=== PATIENT | female | born 1995 | race Caucasian/White ===

== ENCOUNTER → 2017-01-01 | Outpatient (CLI) | payer OTHER ==
[2017-01-01 11:00] LABS: CHOLESTEROL/HDL RATIO 2.9
== END | disposition home or self-care (01) ==
LOC: C.LAB 09:16
PROVIDERS: ATTEND Family Medicine
DX: Z00.00 Encounter for general adult medical examination without abnormal findings (principal)

== ENCOUNTER → 2017-12-22 | Outpatient (CLI) | payer OTHER ==
[~2017-12-22] MED LIST: DOXY50CA PO; ETONMIS VAGRING
== END | disposition home or self-care (01) ==
LOC: C.RDSM 14:43
PROVIDERS: ATTEND Physical Medicine & Rehabilitation Sports Medicine
DX: S62.662A Nondisplaced fracture of distal phalanx of right middle finger, initial encounter for closed fracture (principal); X58.XXXA Exposure to other specified factors, initial encounter

== ENCOUNTER 2024-11-03 21:13 | Observation (INO) ==
[2024-11-03] MEDS: SODIUM CHLORIDE 0.9% 1,000 ML IV SCH (21:56)
[2024-11-03] MEDS: ONDANSETRON INJ 2 MG/ML 2 ML VIAL IV STA (22:01)
[2024-11-03] MEDS: ACETAMINOPHEN 500 MG TAB PO STA (22:01)
[2024-11-03] MEDS: KETOROLAC 30 MG/ML VIAL IV STA (22:01)
--- NOTE | 2024-11-03 22:07 | Emergency Department Note ---
Impression & Plan Pyelonephritis ED Provider Note CHIEF COMPLAINT: Fever, chills, headache and neck pain x 3 days HISTORY OF PRESENT ILLNESS: This 29-year-old female patient presents to the emergency department via private vehicle for evaluation of fever, chills, headache, neck pain. Symptoms been ongoing for 3 days. Patient states symptoms are worse today than they have been. She has a recent tick or insect bite. She denies any cough or URI symptoms. No chest pain or trouble breathing. No abdominal pain. No nausea or vomiting. She did have several loose stools earlier today. She denies neck stiffness, but really complains of pain. No weakness. No numbness or tingling. No dysuria, urinary frequency, urinary hesitancy, hematuria. No flank or back pain. No rash. Patient denies any recent travel. History provided by: Patient REVIEW OF SYSTEMS: A 10 system review of systems was performed with positives and pertinent negatives listed in the history of present illness. All other systems were reviewed and are negative. ALLERGIES: Sulfa PHYSICAL EXAM: VITALS: Vitals are noted on the nurse's note and reviewed by myself. Patient is febrile and tachycardic. GENERAL: This is a 29-year-old female, in no acute distress, nondiaphoretic, well-developed well-nourished. SKIN: The skin was without rashes, erythema, edema, or bruising. There is no tenting of the skin. Capillary refill less than 2 seconds. HEAD: Normocephalic atraumatic. EARS: External auditory canals clear, tympanic membranes pearly cornelius without erythema or effusion bilaterally. No hemotympanum. Negative huitron sign EYES: Pupils equal round and reactive to light and accommodation. Conjunctivae without injection, sclerae without icterus. Extraocular movements intact. NOSE: Patent, turbinates without inflammation or discharge. No sinus tenderness. MOUTH: Mucous membranes moist. Tonsils are not enlarged. Pharynx without erythema or exudate. Uvula midline. Airway patent. Tongue does not deviate. NECK: Supple without nuchal rigidity. No lymphadenopathy. Cervical spine is nontender. No JVD. HEART: Regular rate and rhythm without murmurs gallops or rubs. LUNGS: Clear to auscultation bilaterally without wheezes, rales or rhonchi. No retractions or accessory muscle use. ABDOMEN: Positive bowel sounds x 4. Soft, nontender, without masses or organomegaly. Lennon sign negative. No guarding or rebound tenderness. MUSCULOSKELETAL: No muscle atrophy, erythema, or edema noted. Full range of motion without joint tenderness in all extremities. No tenderness to palpation. Normal gait. Strength 5/5 throughout. NEURO: Patient was alert and oriented to person place and time. No focal neurological deficits. An order was placed for continuous cardiac surgeon. The monitor showed a sinus tachycardia at a ventricular rate of 119 bpm, per my interpretation. EKG was reviewed by myself and found to be sinus tachycardia at a rate of 117 beats per minute and per my interpretation reveals no ST elevation or depression. No T wave inversion. No prior EKG available for comparison. Imaging as interpreted by myself and the radiologist revealed findings consistent with bilateral pyelonephritis, right greater than left, with radiologist interpretation as above. I agree with the radiologist's findings as based upon my independent interpretation. EMERGENCY DEPARTMENT COURSE: The patient was evaluated as above. The patient presents to the emergency department for fever, chills, headache, and neck pain. Is been ongoing for 3 days. On arrival, the patient is tachycardic and febrile. Heart rate was 135. She is complaining only of a headache and chills at the time. IV access was obtained, labs are drawn. Patient immediately hydrated with 2 L of IV fluids. She was medicated with Toradol and acetaminophen. Labs reviewed. Per my interpretation, there is a leukocytosis of 21,000. No anemia or thrombocytopenia. Renal, hepatic function and electrolytes without significant abnormality. C-reactive protein elevated at 32.72. Procalcitonin 0.46. hCG negative. Urinalysis positive for nitrites, 4+ ketones, blood, leukocyte esterase, and bacteria. Respiratory bio fire testing negative. Lyme disease screen is negative. Anaplasma and Babesia smear are negative. Given the urinary tract infection without flank/back pain, dysuria, urinary frequency, urinary hesitancy, I did elect to perform CT imaging of the abdomen/pelvis to evaluate for pyelonephritis. CT imaging was completed and reviewed by myself radiologist as noted. This is consistent with bilateral pyelonephritis, right greater than left. Patient medicated with IV Rocephin. On reevaluation, she was feeling much better. Low suspicion for meningitis at this time. The patient does not have nuchal rigidity. Her neck pain has significantly improved. Her headache has largely resolved. Workup here in the emergency department is consistent with pyelonephritis. I do recommend inpatient care given her workup and symptoms. The patient was agreeable. I discussed the case with the [facility] hospitalist who agreed to accept the patient. Please see hospitalist dictation regarding ongoing management and care of this patient. Case was discussed with the attending physician. I attest that I have personally reviewed the patient medication list. I attest that I have reviewed the patient's blood pressure and it was found to be normal GCS: 15 In the evaluation and treatment of this patient the following differential diagnoses were entertained: Viral syndrome, otitis, pharyngitis, pneumonia, influenza, meningitis, urinary tract infection, sepsis, bacteremia, as well as other pathologies. The chart was completed utilizing DashThis Speech voice recognition software. Grammatical errors, random word insertions, pronoun errors, and incomplete sentences are an occasional consequence of this system due to software limitations, ambient noise, and hardware issues. Any formal questions or concerns about the content, text, or information contained within the body of this dictation should be directly addressed to the provider for clarification. Past Med/Surg History Problem List (Updated 11/04/24 @ 05:03 by Juana Rico PA-C) Pyelonephritis (Acute) Surgical History H/O shoulder surgery History of tonsillectomy and adenoidectomy Family History Other No pertinent past surgical history Social History Smoking Status: Never smoker Second Hand Exposure: No; Do You Dip or Chew Tobacco: No; Tobacco Cessation Education Requested by Patient: No Hx Alcohol Use: No Hx Substance Use: No Preferred Language: Georgian Communication Ability: Effective Horse Groomer Required: No Beliefs That Will Affect Care: None Current Living Situation: Parent Current Living Situation Comment: lives with her mom Other Information That Helps Us Care for You: No Feels Safe at Home: Yes Safety Concerns: Feels Safe At This Time Assistive Devices: None Allergies Allergies Allergy/AdvReac Type Severity Reaction Status Date / Time Sulfa (Sulfonamide Allergy Mild Hives Verified 12/06/17 16:40 Antibiotics) Home Meds Home Medications Medication Instructions Recorded Confirmed DOXYCYCLINE HYCLATE (VIBRAMYCIN) 50 mg PO DAILY #0 caps 12/06/17 04/03/20 Etonogestrel/Ethinyl Estradiol 1 dose VAGRING MONTHLY #0 doses 12/06/17 04/03/20 (Nuvaring) methylphenidate HCl 18 mg 18 mg PO DAILY 07/13/19 04/03/20 tablet,extended release 24 hr (Concerta) spironolactone 25 mg/5 mL oral 25 mg PO DAILY 07/13/19 04/03/20 suspension Results & Data (ED) Vital Signs Vital Signs - 24 hr 11/03/24 21:17 11/03/24 21:48 11/03/24 22:03 Temperature 38.1 C H Temperature Source Oral Pulse Rate 137 H 119 H 116 H Pulse Rate [Apical] Pulse Rate from SpO2 Sensor Respiratory Rate 18 21 Respiratory Effort / Characteristics Non-Labored Spontaneous Respiratory Depth Normal Respiratory Pattern Regular Blood Pressure 127/75 Blood Pressure [Right Arm] Blood Pressure Mean 92 Blood Pressure Mean [Right Arm] Blood Pressure Position Sitting Pulse Oximetry 98 98 Oxygen Delivery Method Room Air Sepsis Recent Fever Within 48 Hours Yes Sepsis New/Unexplained Change in Mental Status No Sepsis Action Taken by Nursing No Action Required 11/03/24 22:27 11/03/24 22:56 11/03/24 22:56 Temperature Temperature Source Pulse Rate 102 H Pulse Rate [Apical] 107 H Pulse Rate from SpO2 Sensor Respiratory Rate 19 18 Respiratory Effort / Characteristics Respiratory Depth Respiratory Pattern Blood Pressure 110/65 Blood Pressure [Right Arm] 110/65 Blood Pressure Mean 73 Blood Pressure Mean [Right Arm] 80 Blood Pressure Position Pulse Oximetry 99 Oxygen Delivery Method Sepsis Recent Fever Within 48 Hours Sepsis New/Unexplained Change in Mental Status Sepsis Action Taken by Nursing 11/03/24 23:00 11/03/24 23:54 11/04/24 01:42 Temperature Temperature Source Pulse Rate 105 H 99 H 79 Pulse Rate [Apical] Pulse Rate from SpO2 Sensor 104 H 99 H Respiratory Rate 22 21 18 Respiratory Effort / Characteristics Respiratory Depth Respiratory Pattern Blood Pressure 97/62 L Blood Pressure [Right Arm] Blood Pressure Mean 69 Blood Pressure Mean [Right Arm] Blood Pressure Position Pulse Oximetry 98 99 98 Oxygen Delivery Method Sepsis Recent Fever Within 48 Hours Sepsis New/Unexplained Change in Mental Status Sepsis Action Taken by Nursing 11/04/24 01:43 11/04/24 01:57 11/04/24 02:06 Temperature 36.7 C Temperature Source Oral Pulse Rate 93 H 79 Pulse Rate [Apical] Pulse Rate from SpO2 Sensor 78 Respiratory Rate 15 Respiratory Effort / Characteristics Respiratory Depth Respiratory Pattern Blood Pressure Blood Pressure [Right Arm] Blood Pressure Mean Blood Pressure Mean [Right Arm] Blood Pressure Position Pulse Oximetry 99 Oxygen Delivery Method Sepsis Recent Fever Within 48 Hours Sepsis New/Unexplained Change in Mental Status Sepsis Action Taken by Nursing Laboratory Data 11/03/24 21:52 11/03/24 21:52 Lab Results 11/03/24 11/03/24 Range/Units 21:52 22:55 WBC 21.15 H (4.8-10.8) K/ul RBC 4.59 (4.20-5.40) M/uL Hgb 12.0 (12.0-16.0) g/dl Hct 36.7 L (37.0-47.0) % MCV 80.0 (80.0-100.0) fL MCH 26.1 (25.0-34.0) pg MCHC 32.7 (32.0-36.0) g/dL RDW Std Deviation 44.5 (36.4-46.3) fL RDW Coeff of William 15.5 H (11.5-14.5) % Plt Count 245 (130-400) K/uL MPV 10.5 (9.4-12.4) fL Immature Gran % (Auto) 0.7 % Neut % (Auto) 81.9 % Lymph % (Auto) 5.3 % Taney % (Auto) 11.7 % Eos % (Auto) 0.2 % Baso % (Auto) 0.2 % Neut # (Auto) 17.32 H (1.40-6.50) K/uL Lymph # (Auto) 1.13 L (1.20-3.40) K/uL Taney # (Auto) 2.47 H (0.11-0.59) K/uL Eos # (Auto) 0.04 (0.00-0.50) K/uL Baso # (Auto) 0.05 (0.00-0.20) K/uL Immature Gran # (Auto) 0.14 (0.01-0.20) K/uL Sodium 131 L (136-145) mmol/L Potassium 3.4 L (3.5-5.1) mmol/L Chloride 98 (98-107) mmol/L Carbon Dioxide 22 (21-32) mmol/L Anion Gap 11 (3-11) BUN 6 (6-23) mg/dl Creatinine 0.84 (0.6-1.2) mg/dl Est Cr Clr Drug Dosing 144.8 ml/min eGFR 95.22 BUN/Creatinine Ratio 7.1 L (10-20) Glucose 125 H (70-99(Fasting)) mg/dl Lactate 1.0 (0.4-2.0) mmol/L Calcium 9.0 (8.6-10.3) mg/dl Magnesium 1.7 (1.7-2.4) mg/dl Total Bilirubin 0.6 (0.2-1.0) mg/dl Direct Bilirubin 0.1 (0-0.2) mg/dl AST 10 L (13-39) U/L ALT 12 (7-52) U/L Alkaline Phosphatase 85 (34-104) U/L Troponin I High Sens 11.5 (0-14) pg/ml C-Reactive Protein 32.72 H (0-0.5) mg/dl Total Protein 7.0 (6.0-8.3) gm/dl Albumin 3.6 (3.4-5.0) gm/dl Procalcitonin 0.46 (0-0.5) ng/ml HCG, Qual Negative (Negative) Urine Color Yellow Urine Appearance Clear (Clear) Urine pH 6.0 (4.5-7.5) Ur Specific [place] 1.016 (1.000-1.030) Urine Protein 2+ H (Negative) Urine Glucose (UA) Negative (Negative) Urine Ketones 4+ H (Negative) Urine Blood 1+ H (Negative) Urine Nitrite Positive A (Negative) Urine Bilirubin Negative (Negative) Urine Urobilinogen Negative (Negative) Ur Leukocyte Esterase 2+ H (Negative) Urine WBC (Auto) >50 H (0-5) /hpf Urine RBC (Auto) 11-20 H (0-2) /hpf U Hyaline Cast (Auto) 3-5 H (0-2) /lpf U Epithel Cells (Auto) 3-5 H (0-2) /hpf Urine Bacteria (Auto) 2+ H (None Seen) Urine Comment Adenovirus (PCR) Not Detected (NotDetected) Anaplasma Smear See Comment Babesia Smear See Comment B. pertussis DNA (PCR) Not Detected (NotDetected) B.parapertussis DNA PCR Not Detected (NotDetected) Lyme Disease Screen Negative (Negative) C. pneumoniae DNA (PCR) Not Detected (NotDetected) Coronavirus OC43 (PCR) Not Detected (NotDetected) Coronavirus HKU1 (PCR) Not Detected (NotDetected) Coronavirus 229E (PCR) Not Detected (NotDetected) SARS-CoV-2 (PCR) Not Detected (NotDetected) Coronavirus NL63 (PCR) Not Detected (NotDetected) Monoscreen Negative (Negative) Human Metapneumovir PCR Not Detected (NotDetected) Influenza Type A (PCR) Not Detected (NotDetected) Influenza Type B (PCR) Not Detected (NotDetected) M. pneumoniae (PCR) Not Detected (NotDetected) Parainfluenza 1 (PCR) Not Detected (NotDetected) Parainfluenza 2 (PCR) Not Detected (NotDetected) Parainfluenza 3 (PCR) Not Detected (NotDetected) Parainfluenza 4 (PCR) Not Detected (NotDetected) RSV (PCR) Not Detected (NotDetected) Entero/Rhino (PCR) Not Detected (NotDetected) Administered Medications Lactated Ringer's (Lr) 1,000 mls @ 125 mls/hr IV .Q8H ROMULO Stop: 11/04/24 19:48 Last Admin: 11/04/24 04:47 Dose: 125 mls/hr Documented By: BROOKE Discontinued Medications Acetaminophen (Acetaminophen 500 Mg Tab) 1,000 mg PO NOW STA Stop: 11/03/24 21:36 Last Admin: 11/03/24 22:01 Dose: 1,000 mg Documented By: SRUTHI Sodium Chloride (Nss) 1,000 mls @ 999 mls/hr IV .Q1H1M ROMULO Stop: 11/03/24 23:45 Last Infusion: 11/03/24 23:46 Dose: Infused Documented By: Admin: 11/03/24 22:56 Dose: 999 mls/hr Documented By: Infusion: 11/03/24 22:54 Dose: Infused Documented By: Admin: 11/03/24 21:56 Dose: 999 mls/hr Documented By: SRUTHI Ceftriaxone Sodium (Rocephin) 2,000 mg in 50 mls @ 100 mls/hr IV NOW STA Stop: 11/04/24 00:14 Last Infusion: 11/04/24 00:35 Dose: Infused Documented By: Admin: 11/04/24 00:05 Dose: 100 mls/hr Documented By: JONNA Ioversol (Optiray 320 100ml) 93 ml IV ONCE ONE Stop: 11/04/24 00:30 Last Admin: 11/04/24 00:29 Dose: 93 ml Documented By: MINNIE Ketorolac Tromethamine (Ketorolac 30 Mg/Ml Vial) 30 mg IV NOW STA Stop: 11/03/24 21:53 Last Admin: 11/03/24 22:01 Dose: 30 mg Documented By: SRUTHI Ondansetron HCl (Ondansetron Inj 2 Mg/Ml 2 Ml Vial) 4 mg IV NOW STA Stop: 11/03/24 21:53 Last Admin: 11/03/24 22:01 Dose: 4 mg Documented By: SRUTHI Imaging Data Radiologist's Impression: Chest X-Ray 11/03/24 21:35 Exam(s): XR CXR 1 VIEW EXAM: XR Chest, 1 View CLINICAL HISTORY: Reason for exam: Sepsis. TECHNIQUE: Frontal view of the chest. COMPARISON: None FINDINGS: Hardware: None. Lungs/pleura: Normal. No focal consolidation. No pleural effusion or pneumothorax. Heart/mediastinum: Normal. No cardiomegaly. Soft tissues: Unremarkable. Bones: No acute fracture. Upper abdomen: Normal. IMPRESSION: No acute disease identified. Electronically signed by: Ashok Nunez M.D. 11/04/24 00:27 AM Abdomen/Pelvis CT 11/03/24 23:45 EXAM: CT abd pelvis IV con only CLINICAL HISTORY: fever, UTI TECHNIQUE: Contiguous axial images were obtained from the level of the diaphragm to the pubic symphysis with intravenous contrast. Coronal and sagittal reconstructions were likewise performed and indicated to increase the sensitivity for detecting clinically relevant pathology. If IV contrast material had not been administered, the likelihood of detecting abnormalities relevant to the patient's condition would have been substantially decreased. CT scan was performed according to ALARA (as low as reasonable achievable). COMPARISON: None FINDINGS: The visualized lung bases are clear. The liver is normal in size and attenuation. No focal liver lesions are seen. There is no intra or extrahepatic biliary ductal dilatation. Hepatic vasculature is patent. The gallbladder is present. The spleen, pancreas, and adrenal glands are unremarkable. Both kidney appears bulky in size and shows multiple patchy started hypodense area involving renal cortex with bilateral perinephric fat stranding ; more on right side.- suggestive of pyelonephritis. Mild fullness noted involving bilateral ureter and shows diffuse mucosal edema - suggestive of ureteritis- predominantly on the right side. The bladder is normal in contour. Pelvic viscera are unremarkable. No focal or diffuse bowel wall thickening or evidence of bowel obstruction is identified. Abdominal and pelvic vasculature is patent. Minimal free fluid noted in pelvis. 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 No aggressive appearing osseous lesions are identified. IMPRESSION: Bilateral pyelonephritis with ureteritis - more on right side. Minimal free fluid noted in pelvis. 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 Electronically signed by Alvaro Elder 11-04-2024 02:18 AM Discharge Plan Visit Data Chief Complaint: Flu Like Symptoms Stated Complaint: FLU ED Provider: Umesh Torres ED Midlevel Provider: Juana Rico Discharge Problem: Pyelonephritis Patient Disposition: Admitted As Inpatient Condition: Good
[2024-11-03 22:35] LABS: BUN Creatinine Ratio 7.1 (10-20); Bilirubin Direct 0.1 mg/dl (0-0.2); Bilirubin,Total 0.6 mg/dl (0.2-1.0); Creatinine Clr Calc Pharmacy 144.8 ml/min; Magnesium 1.7 mg/dl (1.7-2.4); Potassium 3.4 mmol/L (3.5-5.1)
[2024-11-03 22:42] LABS: Troponin I High Sensitivity 11.5 pg/ml (0-14)
[2024-11-03 22:46] LABS: Basophils # (auto) 0.05 K/uL (0.00-0.20); Basophils % (auto) 0.2 %; Eosinophils # (auto) 0.04 K/uL (0.00-0.50); Eosinophils % (auto) 0.2 %; Hematocrit (blood only) 36.7 % (37.0-47.0); Immature Granulocytes # (auto) 0.14 K/uL (0.01-0.20); Immature Granulocytes % (auto) 0.7 %; Lymphocytes # (auto) 1.13 K/uL (1.20-3.40); Lymphocytes % (auto) 5.3 %; Mean Corpuscular Hemoglobin 26.1 pg (25.0-34.0); Mean Corpuscular Hgb Conc 32.7 g/dL (32.0-36.0); Mean Platelet Volume 10.5 fL (9.4-12.4); Monocytes # (auto) 2.47 K/uL (0.11-0.59); Monocytes % (auto) 11.7 %; Neutrophils # (auto) 17.32 K/uL (1.40-6.50); Neutrophils % (auto) 81.9 %; Platelet Count 245 K/uL (130-400); RDW Coefficient of Variation 15.5 % (11.5-14.5); RDW Standard Deviation 44.5 fL (36.4-46.3); Red Blood Count 4.59 M/uL (4.20-5.40); White Blood Count 21.15 K/ul (4.8-10.8)
[2024-11-03 22:49] LABS: Pregnancy Test, Serum Negative (Negative)
[2024-11-03 22:58] LABS: C Reactive Protein 32.72 mg/dl (0-0.5)
[2024-11-03 23:14] LABS: Adenovirus PCR Not Detected (NotDetected); Bordetella parapertussis PCR Not Detected (NotDetected); Bordetella pertussis PCR Not Detected (NotDetected); Chlamydia pneumoniae PCR Not Detected (NotDetected); Coronavirus 229E PCR Not Detected (NotDetected); Coronavirus CoV-2 (COVID19)PCR Not Detected (NotDetected); Coronavirus HKU1 PCR Not Detected (NotDetected); Coronavirus NL63 PCR Not Detected (NotDetected); Coronavirus OC43PCR Not Detected (NotDetected); Human Metapneumovirus PCR Not Detected (NotDetected); Influenza A PCR Not Detected (NotDetected); Influenza B PCR Not Detected (NotDetected); Mycoplasma pneumoniae PCR Not Detected (NotDetected); Parainfluenza Virus 1 PCR Not Detected (NotDetected); Parainfluenza Virus 2 PCR Not Detected (NotDetected); Parainfluenza Virus 3 PCR Not Detected (NotDetected); Parainfluenza Virus 4 PCR Not Detected (NotDetected); Respiratory Syncytial VirusPCR Not Detected (NotDetected); Rhinovirus/Enterovirus PCR Not Detected (NotDetected)
[2024-11-03 23:32] LABS: Appearance Urine Clear (Clear); Bacteria Urine Automated 2+ (None Seen); Bilirubin Urine Negative (Negative); Blood Urine 1+ (Negative); Color Urine Yellow; Glucose Urine UA Negative (Negative); Ketones Urine 4+ (Negative); Leukocyte Esterase Urine 2+ (Negative); Nitrite Urine Positive (Negative); Protein Urine 2+ (Negative); Specific Gravity Urine 1.016 (1.000-1.030); Urobilinogen Urine Negative (Negative); WBC Urine Automated >50 /hpf (0-5)
[2024-11-04] MEDS: cefTRIAXone SODIUM 2,000 MG/50 ML BAG IV STA (00:05)
--- NOTE | 2024-11-04 00:28 | XRay Report ---
Exam(s): XR CXR 1 VIEW EXAM: XR Chest, 1 View CLINICAL HISTORY: Reason for exam: Sepsis. TECHNIQUE: Frontal view of the chest. COMPARISON: None FINDINGS: Hardware: None. Lungs/pleura: Normal. No focal consolidation. No pleural effusion or pneumothorax. Heart/mediastinum: Normal. No cardiomegaly. Soft tissues: Unremarkable. Bones: No acute fracture. Upper abdomen: Normal. IMPRESSION: No acute disease identified. Electronically signed by: Ashok Nunez M.D. 11/04/24 00:27 AM
[2024-11-04] MEDS: OPTIRAY 320 100ml IV ONE (00:29)
--- NOTE | 2024-11-04 02:11 | History & Physical Report ---
Date of Service November 04, 2024 Assessment & Plan (1) Pyelonephritis: (2) Sepsis: (3) Hyponatremia: Plan Pt is a pleasant 29 yo female with past medical hx of previous UTIs who presents to the hospital on 11/04 for fevers, admitted for pyelonephritis. #Pyelonephritis - CT abd/pelvis; bilateral pyelonephritis with ureteritis R>L, well defined fat/calcified focus in R ovary "likely mature dermoid" - WBC count on admission , CRP 32.7, febrile - urine cx; pending - blood cx; pending - IVR LR 125/hr x2 bags - IV antibiotics; rocephin DVT ppx: low risk, ambulate as tolerated History of Present Illness Chief Complaint: Pyelonephritis Primary Care Provider: Rosalina Lucas DO Pt is a pleasant 29 yo female with past medical hx of previous UTIs who presents to the hospital on 11/04 for fevers, admitted for pyelonephritis. Pt states that on Wednesday morning she woke up with fevers and body aches. She no sergoi some nausea/decreased appetite the last few days but no vomiting. She states she did have some diarrhea episodes today, very loose, no blood, 3 times today only. She states that she has had UTIs in the past, last one being a few years ago. She states she just returned from [place] where she attended training for [employer]. No URI symptoms noted. She does note some back soreness. No further concerns noted at this time. Allergies Allergy/AdvReac Type Severity Reaction Status Date / Time Sulfa (Sulfonamide Allergy Mild Hives Verified 12/06/17 16:40 Antibiotics) Home Medications Medication Instructions Recorded Confirmed Type DOXYCYCLINE HYCLATE (VIBRAMYCIN) 50 mg PO DAILY #0 caps 12/06/17 04/03/20 History Etonogestrel/Ethinyl Estradiol 1 dose VAGRING MONTHLY #0 doses 12/06/17 04/03/20 History (Nuvaring) methylphenidate HCl 18 mg 18 mg PO DAILY 07/13/19 04/03/20 History tablet,extended release 24 hr (Concerta) spironolactone 25 mg/5 mL oral 25 mg PO DAILY 07/13/19 04/03/20 History suspension Past Med/Surg History Problem List (Updated 11/04/24 @ 10:00 by Moisés Goldsmith MD) Hyponatremia Sepsis Pyelonephritis (Acute) Surgical History H/O shoulder surgery History of tonsillectomy and adenoidectomy Family History Other No pertinent past surgical history Social History Smoking Status: Never smoker Second Hand Exposure: No; Do You Dip or Chew Tobacco: No; Tobacco Cessation Education Requested by Patient: No Hx Alcohol Use: No Hx Substance Use: No Preferred Language: Amharic Communication Ability: Effective Local Tanker Truck Driver Required: No Beliefs That Will Affect Care: None Current Living Situation: Parent Current Living Situation Comment: lives with her mom Other Information That Helps Us Care for You: No Feels Safe at Home: Yes Safety Concerns: Feels Safe At This Time Assistive Devices: None Review of Systems Review of Systems: Per HPI. Physical Exam Physical Exam: General: Alert and oriented, no acute distress, comfortable appearing HEENT: Normocephalic, moist oral mucosa, Cardio: Regular rate and rhythm, no murmur, Resp: Lungs clear to auscultation without wheezing, no increased resp effort, GI: Soft and nontender, nondistended, bowel sounds active Skin: Warm, pink, dry, Results & Data Results & Data Vital Signs (Past 12 Hours) Vital Signs Temp Pulse Pulse Resp BP BP Pulse Ox 11/04/24 01:57 93 H 11/04/24 01:43 36.7 C 11/04/24 01:42 79 18 97/62 L 98 11/03/24 23:54 99 H 21 99 11/03/24 23:00 105 H 22 98 11/03/24 22:56 110/65 11/03/24 22:56 107 H 18 110/65 99 11/03/24 22:27 102 H 19 11/03/24 22:03 116 H 21 98 11/03/24 21:48 119 H 11/03/24 21:17 38.1 C H 137 H 18 127/75 98 O2 Del Method 11/04/24 01:57 11/04/24 01:43 11/04/24 01:42 11/03/24 23:54 11/03/24 23:00 11/03/24 22:56 11/03/24 22:56 11/03/24 22:27 11/03/24 22:03 11/03/24 21:48 11/03/24 21:17 Room Air Supervising Physician Co-Signing Physician Notes Attending Attestation & Admit Note: Pt seen/examined, chart reviewed, admit care plan d/w resident physician Dr Juana Dimas. I agree with the hodges components of her documentation with the following additions - ##sepsis ##hyponatremia ##hypokalemia 29yo female - no significant PMH - presenting with several days of fevers/chills & flu-like symptoms. Minimal right-sided abdominal discomfort. Extensive w/u in the ER revealed u/a highly suspicious for UTI. CT a/p with findings c/w b/l pyelonephritis, worse on right. Lyme, anaplasmosis, babesia screens negative. Resp BioFire negative. Toombs testing negative. Blood cx's dispatched. CT with incidental finding of right-sided ovarian dermoid cyst. exam: gen - looks ill but nontoxic, awake/alert neck - no meningismus mouth - MM dry heart - RRR, s1 s2, no murmur lungs - CTA b/l abd - soft, mild tenderness R flank, no HSM, BS+ ext - warm, pulses 2+ b/l A/P: 1. sepsis 2nd to UTI/pyelonephritis 2. UTI/pyelonephritis; no risk factors for resistant pathogens 3. hyponatremia 2nd volume contraction 4. incidental finding of right-sided ovarian dermoid cyst 5. minimal hypokalemia 2nd to diarrhea and poor nutritional intake -rocephin IV -IV fluids -follow blood/urine cx's -repeat labs am tomorrow #4 - f/u with sweatband cutting machine operator as outpatient Moisés Goldsmith MD Resident Activity Tracking Resident Involvement: Resident Care Provided Care Provided: Adult Hospital Medicine
--- NOTE | 2024-11-04 02:23 | CT Scan Report ---
EXAM: CT abd pelvis IV con only CLINICAL HISTORY: fever, UTI TECHNIQUE: Contiguous axial images were obtained from the level of the diaphragm to the pubic symphysis with intravenous contrast. Coronal and sagittal reconstructions were likewise performed and indicated to increase the sensitivity for detecting clinically relevant pathology. If IV contrast material had not been administered, the likelihood of detecting abnormalities relevant to the patient's condition would have been substantially decreased. CT scan was performed according to ALARA (as low as reasonable achievable). COMPARISON: None FINDINGS: The visualized lung bases are clear. The liver is normal in size and attenuation. No focal liver lesions are seen. There is no intra or extrahepatic biliary ductal dilatation. Hepatic vasculature is patent. The gallbladder is present. The spleen, pancreas, and adrenal glands are unremarkable. Both kidney appears bulky in size and shows multiple patchy started hypodense area involving renal cortex with bilateral perinephric fat stranding ; more on right side.- suggestive of pyelonephritis. Mild fullness noted involving bilateral ureter and shows diffuse mucosal edema - suggestive of ureteritis- predominantly on the right side. The bladder is normal in contour. Pelvic viscera are unremarkable. No focal or diffuse bowel wall thickening or evidence of bowel obstruction is identified. Abdominal and pelvic vasculature is patent. Minimal free fluid noted in pelvis. 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 No aggressive appearing osseous lesions are identified. IMPRESSION: Bilateral pyelonephritis with ureteritis - more on right side. Minimal free fluid noted in pelvis. 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 Electronically signed by Alvaro Elder 11-04-2024 02:18 AM
[2024-11-04] MEDS ORDERED: ONDANSETRON INJ 2 MG/ML 2 ML VIAL IV PRN (03:49)
[2024-11-04] MEDS ORDERED: MELATONIN 3 MG TAB PO PRN (03:49)
[2024-11-04] MEDS ORDERED: POLYETHYLENE (MIRALAX) 17 GM PACK PO PRN (03:49)
[2024-11-04] MEDS: LACTATED RINGER'S 1,000 ML IV SCH (04:47)
[2024-11-04] MEDS: ACETAMINOPHEN 325 MG TAB PO PRN (05:31)
[2024-11-04] MEDS: POTASSIUM CHLORIDE CRTAB 20 MEQ TABCR PO STA ×2 (05:37→09:08)
[2024-11-04 07:13] VITALS: RESP 16
[2024-11-04 07:24] LABS: Basophils # (auto) 0.03 K/uL (0.00-0.20); Basophils % (auto) 0.2 %; Eosinophils # (auto) 0.02 K/uL (0.00-0.50); Eosinophils % (auto) 0.1 %; Hematocrit (blood only) 28.7 % (37.0-47.0); Hemoglobin 9.8 g/dl (12.0-16.0); Immature Granulocytes # (auto) 0.12 K/uL (0.01-0.20); Immature Granulocytes % (auto) 0.6 %; Lymphocytes # (auto) 0.78 K/uL (1.20-3.40); Lymphocytes % (auto) 4.2 %; Mean Corpuscular Hemoglobin 27.1 pg (25.0-34.0); Mean Corpuscular Hgb Conc 34.1 g/dL (32.0-36.0); Mean Corpuscular Volume 79.3 fL (80.0-100.0); Mean Platelet Volume 10.6 fL (9.4-12.4); Monocytes # (auto) 2.08 K/uL (0.11-0.59); Monocytes % (auto) 11.2 %; Neutrophils # (auto) 15.48 K/uL (1.40-6.50); Neutrophils % (auto) 83.7 %; Platelet Count 196 K/uL (130-400); RDW Coefficient of Variation 15.4 % (11.5-14.5); RDW Standard Deviation 44.4 fL (36.4-46.3); Red Blood Count 3.62 M/uL (4.20-5.40); White Blood Count 18.51 K/ul (4.8-10.8)
[2024-11-04 07:43] LABS: BUN Creatinine Ratio 10.8 (10-20); Calcium 7.6 mg/dl (8.6-10.3); Creatinine Clr Calc Pharmacy 131.1 ml/min; Potassium 3.3 mmol/L (3.5-5.1)
--- NOTE | 2024-11-04 10:07 | Billing Data ---
Date of Service November 04, 2024 Coding Level of Care Code 79228 INT INP/OBS CARE
--- NOTE | 2024-11-04 10:33 | Hospitalist Progress Note ---
Date of Service November 04, 2024 Assessment & Plan (1) Pyelonephritis: (2) Sepsis: (3) Hyponatremia: Plan Pt is a pleasant 29 yo female with past medical hx of previous UTIs who presents to the hospital on 11/04 for fevers, admitted for pyelonephritis. 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 Last documented fever 11/03 night - Continue IV Ceftriaxone for now, downgrade antibiotic when culture sensitivities result - Urine culture prelim E. coli, sensitivities pending. Blood cultures pending - S/p 2 L IV fluids - Tylenol as needed for fever/pain - Trend CBC and CRP with AM labs #Hypokalemia - Mild, K 3.3 - Repleted with 20 mEq p.o. x 1 - Trend BMP with AM labs DVT ppx: low risk, ambulate as tolerated Dispo: Awaiting culture sensitivities. Anticipate discharge home in next 24-48 hours Repleted potassium Admission and Anticipated Discharge Date Admission Date: November 04, 2024 Supervising Physician Co-Signing Physician Notes The patient was not seen by me. The chart was reviewed. Case discussed with LETTY Coates. Agree with assessment and plan Subjective Patient seen and evaluated at bedside. She reports feeling a bit better overall. She notes still having intermittent chills, though she has not had a documented fever since her arrival in the ED. She denies any significant pain. She denies any urinary symptoms including dysuria, increased frequency or urgency, or CVA tenderness. She reports a reduced appetite compared to her baseline, but denies nausea, vomiting, or abdominal discomfort. We discussed her pending urine and blood cultures, her lab results, and her antibiotic regimen. All questions answered. No additional complaints or concerns at this time. Physical Exam Physical Exam: General: No acute distress, nondiaphoretic, well-developed, well-nourished. Cardiac: Regular rate and rhythm without murmurs gallops or rubs. Pulm: Clear to auscultation bilaterally without wheezes, rales or rhonchi. Normal respiratory effort. 99% on room air. Abdominal: Soft, nontender, nondistended. Bowel sounds present. No CVA tenderness bilaterally. No suprapubic tenderness. Neuro: A&O x3. No focal neurological deficits. Results & Data Results & Data Vital Signs (Past 12 Hours) Vital Signs Temp Pulse Pulse Pulse Resp BP BP 11/04/24 07:12 99.5 F 102 H 16 96/57 L 11/04/24 03:45 98.1 F 81 18 11/04/24 03:40 98.1 F 81 16 11/04/24 03:00 81 22 11/04/24 02:36 82 19 11/04/24 02:06 79 15 11/04/24 01:57 93 H 11/04/24 01:43 98.1 F 11/04/24 01:42 79 18 97/62 L 11/03/24 23:54 99 H 21 11/03/24 23:00 105 H 22 11/03/24 22:56 110/65 11/03/24 22:56 107 H 18 BP Pulse Ox O2 Del Method 11/04/24 07:12 99 Room Air 11/04/24 03:45 97/65 L 100 Room Air 11/04/24 03:40 97/65 L 100 Room Air 11/04/24 03:00 99 11/04/24 02:36 100 11/04/24 02:06 99 11/04/24 01:57 11/04/24 01:43 11/04/24 01:42 98 11/03/24 23:54 99 11/03/24 23:00 98 11/03/24 22:56 11/03/24 22:56 110/65 99 Laboratory Results Reviewed CBC Reviewed BMP, chemistries Reviewed UA Reviewed cultures Diagnostic Findings Reviewed CXR, CT A/P PG Care Time/CCT Total # of Minutes Spent Total Time Spent with Patient: Total time spent is greater than 50% in coordination of care (as documented) at patient's floor/unit and/or counseling patient: Coding Level of Care Code 99513 SUB INP/OBS CARE 3/50MIN Diagnoses Pyelonephritis N12 Sepsis A41.9 Hyponatremia E87.1
[2024-11-04] MEDS: cefTRIAXone SODIUM 2,000 MG/50 ML BAG IV SCH (23:10)
[2024-11-05 07:06] VITALS: TEMP 100; O2SAT 97
[2024-11-05 07:27] LABS: Basophils # (auto) 0.03 K/uL (0.00-0.20); Basophils % (auto) 0.2 %; Eosinophils # (auto) 0.02 K/uL (0.00-0.50); Eosinophils % (auto) 0.1 %; Hematocrit (blood only) 28.9 % (37.0-47.0); Hemoglobin 9.8 g/dl (12.0-16.0); Immature Granulocytes # (auto) 0.15 K/uL (0.01-0.20); Immature Granulocytes % (auto) 0.9 %; Lymphocytes # (auto) 1.27 K/uL (1.20-3.40); Lymphocytes % (auto) 7.7 %; Mean Corpuscular Hemoglobin 26.8 pg (25.0-34.0); Mean Corpuscular Hgb Conc 33.9 g/dL (32.0-36.0); Mean Corpuscular Volume 79.2 fL (80.0-100.0); Mean Platelet Volume 10.5 fL (9.4-12.4); Monocytes % (auto) 13.9 %; Neutrophils # (auto) 12.81 K/uL (1.40-6.50); Neutrophils % (auto) 77.2 %; Platelet Count 201 K/uL (130-400); RDW Coefficient of Variation 15.6 % (11.5-14.5); RDW Standard Deviation 45.1 fL (36.4-46.3); Red Blood Count 3.65 M/uL (4.20-5.40); White Blood Count 16.58 K/ul (4.8-10.8)
[2024-11-05 08:01] LABS: BUN Creatinine Ratio 6.3 (10-20); Creatinine Clr Calc Pharmacy 135.2 ml/min; Potassium 3.3 mmol/L (3.5-5.1)
[2024-11-05 08:24] LABS: C Reactive Protein 31.64 mg/dl (0-0.5)
[2024-11-05] MEDS: POTASSIUM CHLORIDE CRTAB 20 MEQ TABCR PO STA (09:22)
--- NOTE | 2024-11-05 10:31 | Discharge Summary ---
Discharge Summary Date of Service November 05, 2024 Principal Dx & Hospital Course #1 = Principal Diagnosis (1) Pyelonephritis: (2) UTI (urinary tract infection): (3) Hyponatremia: Plan Pt is a pleasant 29 yo female with past medical hx of previous UTIs who presents to the hospital on 11/04 for fevers, admitted for pyelonephritis. 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 While she developed a fever last night, she reports that she took Tylenol, felt better, and slept well. She has some mild neck stiffness this morning, which she attributes to sleeping in the hospital bed. Patient reports she has been eating and drinking well, and getting up to use the restroom without any difficulty. She did have an episode of diarrhea yesterday and this morning, as well as some mild abdominal cramping. Other than this, she reports no urinary symptoms. No burning with urination, dysuria, blood in the urine, body aches, or right lower back pain. Overall, she is eager to return home at this time. She is amenable to taking oral antibiotics upon discharge. She does report that, in the past, taking antibiotics such as Keflex have led to yeast infections. She has taken ciprofloxacin in the past, and reports she does all right when she takes it. ROS: Patient endorses fever last night (resolved), mild abdominal cramping, and diarrhea. Patient denies chills, night sweats, body aches, headache, dizziness/lightheadedness with standing, chest pain, chest palpitations, SOB, cough, abdominal pain, nausea, vomiting, burning with urination, lower back pain, blood in the urine or stool, or melena. #Pyelonephritis | UTI Leukocytosis downtrending 21 --> 18.5 -> 16.58 CRP downtrending 32.7 -> 31.6 S/p 2 L IV fluids Tylenol as needed for fever/pain Ceftriaxone 2000 mg IV q24h while in the hospital UCx resulted on 11.05 growing pansensitive E. coli Sensitive to both cephalosporins and fluoroquinolones Clinically, patient reports she feels much better on 11/05; no urinary symptoms Discharged on ciprofloxacin 500 mg p.o. BID; QTc okay at 415 #Hypokalemia Mild, K 3.3 Repleted with 20 mEq p.o. x 2 Dispo: Safe for return home on oral antibiotics; will discharge on ciprofloxacin 500 mg p.o. BID x 5 days to complete 7-day course Admission HPI Per Admitting Provider Pt is a pleasant 29 yo female with past medical hx of previous UTIs who presents to the hospital on 11/04 for fevers, admitted for pyelonephritis. Pt states that on Wednesday morning she woke up with fevers and body aches. She notes some nausea/decreased appetite the last few days but no vomiting. She states she did have some diarrhea episodes today, very loose, no blood, 3 times today only. She states that she has had UTIs in the past, last one being a few years ago. She states she just returned from [place] where she attended training for [employer]. No URI symptoms noted. She does note some back soreness. No further concerns noted at this time. Admission Exam Per Admitting Provider General: Alert and oriented, no acute distress, comfortable appearing HEENT: Normocephalic, moist oral mucosa, Cardio: Regular rate and rhythm, no murmur, Resp: Lungs clear to auscultation without wheezing, no increased resp effort, GI: Soft and nontender, nondistended, bowel sounds active Skin: Warm, pink, dry Discharge Exam General: no acute distress; pleasant affect; non-toxic appearing; SpO2 97% on RA HEENT: normocephalic, atraumatic; no scleral icterus; PERRLA; vision and hearing grossly intact Neck: supple; trachea midline Skin: warm, dry without signs of tenting; no cyanosis; no rashes, bruising, lesions, or erythema noted CV: chest wall NTP; RRR; S1/S2 normal; no murmurs/rubs/gallops; pulses intact and symmetric at radial, DP, and PT Lungs: no acute respiratory distress; symmetrical chest wall expansion; clear breath sounds across all lung gutiérrez w/o adventitious sounds; no wheezing ABD: Soft, NTP; BS present; no rebound/guarding; no distention : Negative suprapubic tenderness; negative CVA tenderness bilaterally; back and flanks without signs of rashes or bruising MSK: no tics or fasciculations; no edema noted in the LEs b/l, nonerythematous; patient demonstrates ability wiggle toes/plantarflex/dorsiflex without unilateral deficits Neuro: A&Ox3; normal mood and affect; fluent speech; no focal deficits; sensation intact and symmetric in lower extremity bilaterally Discharge Plan Discharge Items Patient Disposition: Home - Self-Care Reason For Visit: FEVER,PYELONEPHRITIS Discharge Diagnosis: UTI, pyelonephritis Condition on Discharge: Good Activity: As commented below Activity Comment: Gradually increase physical activity as tolerated Non-emergency contact: Primary Care Provider Call non-emergency contact if: you have any medication questions, your symptoms worsen, your pain is not controlled, your pain is worsening and your temperature is above 101.5 Follow-up/Referrals: Rosalina Lucas DO [Primary Care Provider] - Diet: Regular Addtl Attending Provider Instructions: You are hospitalized at [facility] from 11/04 -11/05 for an ascending urinary tract infection known as pyelonephritis. Over the course of your hospital stay, you were treated with an IV antibiotic known as ceftriaxone, and your white blood cell count gradually improved (from 21.15 on arrival to 16.58 at time of discharge). Additionally, you reported overall improvement in your symptoms at time of discharge. A urine culture was obtained when you arrive, which later grew a bacteria known as E. coli. The final results for this urine culture showed that oral antibiotics (such as Keflex and ciprofloxacin) can effectively treat this infection. You did mention that Keflex had led to yeast infections in the past, and expressed a preference for ciprofloxacin (which he may have taken in the past and tolerated well). We will plan to send you home on the following antibiotic: Ciprofloxacin 500 mg tablets to be taken by mouth twice daily x 5 days Your first dose will be given while you are in the hospital. Please take this antibiotic as prescribed to complete the full 7-day course of treatment. Side effects of ciprofloxacin include nausea, diarrhea, stomach discomfort, and increased risk of tendinitis/tendon rupture. It is recommended that you avoid strenuous activity while on this antibiotic. You may continue to take acetaminophen (Tylenol) 500 mg tablets every 6 hours as needed for fever/pain; please do not exceed 3000 mg of Tylenol daily. If you develop any new or worsening symptoms, such as fever, chills, intractable back pain, burning with urination, or blood in the urine, please return to the emergency department immediately. It was a pleasure taking care of you. Please reach out with any questions or concerns. Sincerely, The hospital medicine team at [facility] Pending Studies at Discharge: No Stand-Alone Forms: [facility] Medications and DC Order Prescriptions: New ciprofloxacin HCl 500 mg tablet 500 mg PO BID Qty: 9 0RF Rx Instructions: Take 1 tablet by mouth in the morning, and 1 tablet at night (i.e. twice daily) for the next 5 days Continued Etonogestrel/Ethinyl Estradiol (Nuvaring) 1 EA VAGINAL RING 1 dose VAGRING MONTHLY Qty: 0 methylphenidate HCl [Concerta] 18 mg tablet extended release 24hr 18 mg PO DAILY spironolactone 25 mg/5 mL suspension 25 mg PO DAILY Discontinued DOXYCYCLINE HYCLATE (VIBRAMYCIN) 50 MG capsule 50 mg PO DAILY Qty: 0 Discharge Orders: Discharge Order (Routine); Ordered 11/05/24 Ordered By: Dany Buckley Admission Data Admit Date/Time: 11/04/24 02:30 Attending Provider: Maurice Colin Admit Provider: Juana Dimas Primary Care Provider: Rosalina Lucas Other Providers: Moisés Goldsmith Other Interventions: Discharge Summary Assessment (RN) Last Done: 11/05/24 11:26 Hospital Stay Data Consultations 11/04/24 01:37 ED Decision to Admit Stat Diagnostic Imagining Performed 11/03/24 23:45 CT abd pelvis IV con only Stat Discharge Instructions Given to Patient (Per Discharging Provider) You are hospitalized at [facility] from 11/04 -11/05 for an ascending urinary tract infection known as pyelonephritis. Over the course of your hospital stay, you were treated with an IV antibiotic known as ceftriaxone, and your white blood cell count gradually improved (from 21.15 on arrival to 16.58 at time of discharge). Additionally, you reported overall improvement in your symptoms at time of discharge. A urine culture was obtained when you arrive, which later grew a bacteria known as E. coli. The final results for this urine culture showed that oral antibiotics (such as Keflex and ciprofloxacin) can effectively treat this infection. You did mention that Keflex had led to yeast infections in the past, and expressed a preference for ciprofloxacin (which he may have taken in the past and tolerated well). We will plan to send you home on the following antibiotic: Ciprofloxacin 500 mg tablets to be taken by mouth twice daily x 5 days Your first dose will be given while you are in the hospital. Please take this antibiotic as prescribed to complete the full 7-day course of treatment. Side effects of ciprofloxacin include nausea, diarrhea, stomach discomfort, and increased risk of tendinitis/tendon rupture. It is recommended that you avoid strenuous activity while on this antibiotic. You may continue to take acetaminophen (Tylenol) 500 mg tablets every 6 hours as needed for fever/pain; please do not exceed 3000 mg of Tylenol daily. If you develop any new or worsening symptoms, such as fever, chills, intractable back pain, burning with urination, or blood in the urine, please return to the emergency department immediately. It was a pleasure taking care of you. Please reach out with any questions or concerns. Sincerely, The hospital medicine team at [facility] Supervising Physician Co-Signing Physician Notes The patient was not seen by me. The chart was reviewed. Case discussed with LETTY Shaw. Agree with assessment and plan Total Time Total Time Spent Total Time Spent (In Minutes): 30 Coding [place] [address] IN/OBS DISCH 30 MIN/LESS Patient Type Established Medical Decision Making Moderate Complexity Diagnoses Pyelonephritis N12 UTI (urinary tract infection) N39.0 Hyponatremia E87.1
[2024-11-05 11:27] VITALS: BP 97/65; PULSE 107
[2024-11-05] MEDS: CIPROFLOXACIN 500 MG TAB PO STA (11:37)
--- NOTE | 2024-11-06 15:15 | Electrocardiogram Report ---
Test Reason : Blood Pressure : */* mmHG Vent. Rate : 117 BPM Atrial Rate : 117 BPM P-R Int : 140 ms QRS Dur : 82 ms QT Int : 298 ms P-R-T Axes : 55 -11 31 degrees QTcB Int : 415 ms Poor data quality, interpretation may be adversely affected Sinus tachycardia Possible Left atrial enlargement Incomplete right bundle branch block Otherwise normal ECG No previous ECGs available Confirmed by Ahs Tilley ([id number]) on 11/06/2024 3:15:00 PM Referred By: REFERRED SELF Confirmed By: Ash Tilley
[2024-11-09 23:58] LABS: Babesia microti DNA Not Detected (Not Detected); Q Fever IgG, Phase I NEGATIVE; Q Fever Phase I IgM Antibody NEGATIVE; Q Fever Phase II IgG Antibody NEGATIVE; Q Fever Phase II IgM Antibody NEGATIVE; R. typhi IgG Ab NOT DETECTED; R. typhi IgM Ab NOT DETECTED; RMSF IgG Ab NOT DETECTED; RMSF IgM Ab NOT DETECTED
== END 2024-11-05 11:55 | disposition home or self-care (01) | DRG 872 ==
LOC: ED 21:13 → INTOOBSV 11-04 02:30 → 3N 11-04 02:30 → SUATTDRO 11-04 02:30 → 3N 11-04 03:59